=== PATIENT | female | born 1980 | race Hispanic/Latino ===

== ENCOUNTER 2017-11-16 10:13 | Emergency (ER) | payer OTHER ==
[2017-11-16 10:22] VITALS: TEMP 97.9; BMI 42.3
--- NOTE | 2017-11-16 10:55 | ED PDOC ---
Lower Extremity Pain/Injury Time Seen by Provider: 11/16/17 10:54 Chief Complaint (Provider): knee pain History Per: Patient Additional Complaint(s): 37-year-old female presents with pain and swelling to left knee status post trip and fall at work about 1 hour prior to arrival. Patient denies any head injury or loss of consciousness. She sustained abrasion to knee and has been able to walk since time of injury. Unsure of her last tetanus shot. PMD: Clinic in [place] Past Medical History Reviewed: Historical Data, Nursing Documentation, Vital Signs Vital Signs: Last Vital Signs Temp 97.9 F 11/16/17 10:21 Pulse 92 H 11/16/17 10:21 Resp BP 157/85 H 11/16/17 10:21 Pulse Ox 96 11/16/17 10:21 - Medical History PMH: Asthma, HTN, Hypercholesterolemia, Migraine - Surgical History Surgical History: Cholecystectomy, (x 2) - Family History Family History: States: No Known Family Hx - Living Arrangements Living Arrangements: With Family - Social History Current smoker - smoking cessation education provided: Yes Alcohol: None Drugs: Cannabis - Home Medications Home Medications: Ambulatory Orders Medication Instructions Recorded DiphenhydrAMINE [Benadryl] 25 mg PO Q4H #20 cap 07/23/15 Ibuprofen [Motrin Tab] 800 mg PO Q8 PRN #20 tab 11/16/17 - Allergies Allergies/Adverse Reactions: Allergies Allergy/AdvReac Type Severity Reaction Status Date / Time bug bites Allergy Uncoded 06/16/14 16:12 Wells Criteria for PE - Wells Criteria for Pulmonary Embolism Clinical Signs and Symptoms of DVT: No P.E is #1 Diagnosis, or Equally Likely: No Heart Rate >100: No Immobilization at least 3 days;Surgery previous 4 weeks: No Previous, objectively diagnosed PE or DVT: No Hemoptysis: No Malignancy w/treatment within 6 months, or palliative: No Total Score: 0 Review of Systems ROS Statement: Except As Marked, All Systems Reviewed And Found Negative Musculoskeletal: Positive for: Other (left knee injury) Physical Exam - Reviewed Nursing Documentation Reviewed: Yes Vital Signs Reviewed: Yes - Physical Exam Appears: Positive for: Well, Non-toxic, No Acute Distress Skin: Positive for: Normal Color. Negative for: Rash Eye Exam: Positive for: Normal appearance Extremity: Positive for: Other (Swelling, tenderness and abrasion noted to left patellar region, decreased range of motion secondary to pain, no obvious bony deformity, normal distal sensation left lower extremity). Negative for: Calf Tenderness Neurologic/Psych: Positive for: Alert, Oriented - Laboratory Results Urine POC: Negative - ECG O2 Sat by Pulse Oximetry: 96 Pulse Ox Interpretation: Normal - Other Rad Left knee x-ray X-Ray: Interpreted by Me, Viewed By Me X-Ray Interpretation: no fx, no dis Medical Decision Making Medical Decision [id number] y/o with left knee injury Plan: Urine test Motrin dose Tetanus booster X-ray left knee Patient is aware of x-ray results, all questions answered. Crutches given, knee immobilizer applied, abrasion to left knee was cleansed with normal saline and Betadine, bandage applied. Patient given Motrin prescription, advised ice, elevation. She was referred to orthopedic on-call for follow-up. Procedures - Splinting Location: left knee Pre-Made Type: knee immobilizer Pre-Proc Neuro Vasc Exam: normal Post-Proc Neuro Vasc Exam: normal Disposition - Clinical Impression Clinical Impression: Knee contusion, Knee abrasion, Need for tetanus booster - Patient ED Disposition Is Patient to be Admitted: No Counseled Patient/Family Regarding: Studies Performed, Diagnosis, Need For Followup, Rx Given - Disposition Referrals: Marta Agustin MD [Staff Provider] - Disposition: Routine/Home Disposition Time: 12:20 Condition: STABLE Additional Instructions: Ice, rest and elevate affected area. Take prescription meds as directed as needed for pain. Follow-up with orthopedist or primary doctor for any persistent symptoms. Prescriptions: Ibuprofen [Motrin Tab] 800 mg PO Q8 PRN #20 tab PRN Reason: Pain, Moderate (4-7) Instructions: Skin Abrasions (DC), Diphtheria and Tetanus Toxoids, and Acellular Pertussis Vaccine, Knee Sprain (DC), Knee Immobilizer (DC), How to Use Crutches, Going Up and Down Curbs or Stairs With a Walker or Crutches Forms: [facility] ED School/Work Excuse
[2017-11-16 11:10] VITALS: RESP 18
[2017-11-16] MEDS ORDERED: Tdap Vaccine 0.5 ml Vial (10-64 yrs) IM ONE ×2 (11:18→11:41)
[2017-11-16 15:54] VITALS: BP 149/80; PULSE 90; O2SAT 98
--- NOTE | 2017-11-16 16:47 | RAD ---
PROCEDURE: Left Knee Radiographs. HISTORY: Pain. COMPARISON: None. FINDINGS: BONES: Normal. No fracture. JOINTS: Normal. No osteoarthritis. JOINT EFFUSION: None. OTHER FINDINGS: None. IMPRESSION: Normal radiographs of the left knee. Concordant results with the preliminary interpretation rendered by the emergency department physician procedure.
== END 2017-11-16 13:00 | disposition home or self-care (01) ==
LOC: H.ER 10:13
DX: S80.02XA Contusion of left knee, initial encounter (principal); S80.212A Abrasion, left knee, initial encounter; W19.XXXA Unspecified fall, initial encounter; Y99.0 Civilian activity done for income or pay; E78.00 Pure hypercholesterolemia, unspecified; I10 Essential (primary) hypertension